=== PATIENT | female | born 1985 | race Caucasian/White ===

== ENCOUNTER 2017-08-23 09:27 | Emergency (ER) | payer MEDICAID, SELFPAY ==
[~2017-08-23] VITALS: Ht 170.2 cm; Wt 61.3 kg
[2017-08-23 09:37] VITALS: BP 168/77
[2017-08-23] MEDS ORDERED: KETOROLAC 60 MG/2 ML IM ONE (10:00)
[2017-08-23] MEDS ORDERED: PROMETHAZINE 25 MG/ML, 1ML IM ONE (10:00)
== END 2017-08-23 10:29 | disposition home or self-care (01) ==
LOC: ED 10:20
DX: F11.23 Opioid dependence with withdrawal (principal)
CPT/HCPCS: 99281